=== PATIENT | male | born 1980 | race Caucasian/White ===

== ENCOUNTER 2016-10-01 09:53 | Emergency (ER) | payer BC ==
[~2016-10-01] VITALS: Ht 182.9 cm; Wt 108.2 kg
[2016-10-01 09:58] VITALS: BP 135/89
[2016-10-01] MEDS ORDERED: AUGMENTIN875 MG PO (11:49)
== END 2016-10-01 11:59 | disposition home or self-care (01) ==
LOC: EME 09:53
PROC: 3E0234Z Introduction of Serum, Toxoid and Vaccine into Muscle, Percutaneous Approach (ICD-10-PCS; principal; 2016-10-01)
PROC: 3E0T3BZ Introduction of Anesthetic Agent into Peripheral Nerves and Plexi, Percutaneous Approach (ICD-10-PCS; principal; 2016-10-01)
DX: S61.250A Open bite of right index finger without damage to nail, initial encounter (principal); W55.01XA Bitten by cat, initial encounter; Z23 Encounter for immunization; Z20.3 Contact with and (suspected) exposure to rabies
CPT/HCPCS: 73140; 99281; 99284